=== PATIENT | male | born 1955 | race Hispanic/Latino ===

== ENCOUNTER 2023-08-10 07:11 | Observation (INO) | payer MEDICARE ==
[2023-08-05 14:44] LABS: BASOPHILS % 0.5 % (0.0-1.0); EOSINOPHILS # (AUTO) 0.1 (0.0-0.4); EOSINOPHILS % 1.4 % (0.0-6.0); HEMOGLOBIN 17.5 g/dL (14.0-18.0); LYMPHOCYTES # (AUTO) 1.7 (1.0-3.2); LYMPHOCYTES % 21.1 % (18.0-39.1); MEAN CORPUSCULAR HEMOGLOBIN 31.4 pg (28-32); MONOCYTES # (AUTO) 0.6 (0.2-0.8); MONOCYTES % 7.8 % (4.4-11.3); NEUTROPHILS # (AUTO) 5.4 (2.1-6.9); NEUTROPHILS % 69.1 % (38.7-80.0); PLATELET COUNT 199 x10e3/uL (140-360); RED BLOOD COUNT 5.58 x10e6/uL (4.3-5.7); WHITE BLOOD COUNT 7.87 x10e3/uL (4.8-10.8)
[2023-08-05 14:59] LABS: ANION GAP 16.5 mmol/L (8-16); CALCIUM 9.4 mg/dL (8.4-10.2); CREATININE, SERUM 1.1 mg/dL (0.72-1.25); POTASSIUM 4.5 mmol/L (3.5-5.1)
[2023-08-10] VITALS (8 sets, daily range): BP systolic 100–120; BP diastolic 79–80; PULSE 72–93; RESP 18–20; TEMP 97.5–98.4; O2SAT 89–95
[~2023-08-10] VITALS: Ht 175.3 cm; Wt 93.0 kg
[~2023-08-10 07:11] MED LIST: COREG12.5 MG PO; GLIMEPIRIDE2 MG PO; HYDROCODON-ACE1 EAC9 PO; HYDROXYCHLOROQ200 MG PO; LANSOPRAZOLE30 MG PO; LIPITOR10 MG PO; LOSARTAN POTASS25 MG PO; METFORMIN HCL500 M2 PO; TRAZODONE HCL300 MG PO
[2023-08-10] MEDS: LACTATED RINGER'S 1,000 ML BAG IV ONE (08:10)
[2023-08-10] MEDS ORDERED: KETAMINE 50MG/5ML SYR ONE (09:22)
[2023-08-10] MEDS: ONDANSETRON HCL INJ 2MG/ML 2ML 2 MG/ML VIAL ONE (11:02)
[2023-08-10] MEDS: METOCLOPRAMIDE HCL 10 MG/2ML VIAL ONE (11:10)
[2023-08-10] MEDS: CEFAZOLIN SODIUM 2 GM ONE (11:50)
[2023-08-10] MEDS: INSULIN REGULAR, HUMAN 100 UNIT/1 ML ONE (11:50)
[2023-08-10] MEDS: LACTATED RINGER'S 1,000 ML INJ SCH (12:00)
[2023-08-10] MEDS ORDERED: SODIUM CHLORIDE FLUSH 10 ML SYR INJ PRN (12:00)
[2023-08-10] MEDS ORDERED: PROPOFOL IV EMULSION 10 MG/ML 20 ML VIAL ONE (12:57)
[2023-08-10] MEDS ORDERED: LIDOCAINE HCL 2% LOCAL INJ 5 ML SDV VIAL INJ ONE (12:57)
[2023-08-10] MEDS ORDERED: SEVOFLURANE INHAL SOLN 250 ML PEN BTL ONE (12:57)
[2023-08-10] MEDS ORDERED: ACETAMINOPHEN 1000 MG/100 ML IV ONE (12:57)
[2023-08-10] MEDS ORDERED: ONDANSETRON HCL INJ 2MG/ML 2ML 2 MG/ML VIAL ONE (12:57)
[2023-08-10] MEDS ORDERED: PHENYLEPHRINE HCL 1% 10 MG/ML VIAL ONE (12:57)
[2023-08-10] MEDS ORDERED: DEXMEDETOMIDINE HCL 200 MCG/2 ML VIAL ONE (12:57)
[2023-08-10] MEDS ORDERED: ROCURONIUM BROMIDE 10 MG/ML 5ML VIAL IV ONE (12:57)
[2023-08-10] MEDS ORDERED: SUGAMMADEX SODIUM 200 MG/2 ML VIAL IV ONE (12:57)
[2023-08-10] MEDS ORDERED: DEXAMETHASONE SOD PHOS INJ 4 MG/ML SDV ONE (12:57)
[2023-08-10] MEDS ORDERED: EPHEDRINE SULFATE INJ 50 MG/ML VIAL ONE (12:57)
[2023-08-10] MEDS: HYDROCODONE/APAP 5MG-325MG TAB PO SCH (13:13)
[2023-08-10] MEDS ORDERED: ROPIVACAINE 0.5% 5 MG/ML 30 ML SDV ONE (13:43)
[2023-08-10] MEDS ORDERED: DEXAMETHASONE SOD PHOS 10 MG/1 ML VIAL ONE (13:43)
[2023-08-10] MEDS ORDERED: HYDRALAZINE HCL 20 MG/ML VIAL IV PRN (15:30)
[2023-08-10] MEDS ORDERED: DIPHENHYDRAMINE HCL 25 MG CAP PO PRN (15:30)
[2023-08-10] MEDS ORDERED: CHLORASEPTIC SPRAY 177 ML BTL MM PRN (15:30)
[2023-08-10] MEDS ORDERED: ACETAMINOPHEN 325 MG TAB PO PRN (15:30)
[2023-08-10] MEDS ORDERED: BENZONATATE 100 MG CAP PO PRN (15:30)
[2023-08-10] MEDS ORDERED: SIMETHICONE 80 MG CHEW PO PRN (15:30)
[2023-08-10] MEDS ORDERED: DOCUSATE SODIUM 100 MG CAP PO PRN (15:30)
[2023-08-10] MEDS ORDERED: ALBUTEROL/IPRATROPIUM 3 ML NEB NEB PRN (15:30)
[2023-08-10] MEDS ORDERED: DEXTROSE 50% SYRINGE 50 ML IV PRN ×2 (15:30)
[2023-08-10] MEDS ORDERED: POTASSIUM CHLORIDE 20 MEQ TAB CR PO PRN (15:30)
[2023-08-10] MEDS: HYDROXYCHLOROQUINE SULFATE 200 MG TAB PO SCH (17:17)
[2023-08-10] MEDS: METFORMIN HCL 500 MG TAB CR PO SCH (17:18)
[2023-08-10] MEDS: CEFAZOLIN SODIUM 2 GM in SODIUM CHLORIDE 0.9% 100 ML IV SCH (17:18)
[2023-08-10] MEDS: CARVEDILOL 12.5 MG TAB PO SCH (17:19)
[2023-08-10] MEDS ORDERED: FENTANYL CITRATE/PF 100MCG/2 ML INJ ONE (17:21)
[2023-08-10] MEDS ORDERED: MIDAZOLAM HCL 2 MG/2 ML VIAL ONE (17:21)
[2023-08-10] MEDS: INSULIN LISPRO 100 UNIT/1 ML 3ML VIAL SQ SCH (17:30)
[2023-08-10] MEDS: HYDROCODONE/APAP 10MG-325MG TAB PO PRN (18:21)
[2023-08-10] MEDS: ENOXAPARIN SOD INJ 40 MG/0.4 ML SYR SC SCH (20:55)
[2023-08-10] MEDS: TRAZODONE HCL 50 MG TAB PO SCH (20:59)
[2023-08-11] VITALS (7 sets, daily range): BP systolic 111–143; BP diastolic 83–114; PULSE 71–86; RESP 17–21; TEMP 97.6–98.1; O2SAT 93–96
[2023-08-11 05:55] LABS: BASOPHILS % 0.1 % (0.0-1.0); EOSINOPHILS % 0.1 % (0.0-6.0); HEMATOCRIT 42.5 % (38.2-49.6); HEMOGLOBIN 14.1 g/dL (14.0-18.0); MEAN CORPUSCULAR HGB CONC 33.2 g/dL (31-35); MEAN CORPUSCULAR VOLUME 96.4 fL (81-99); MONOCYTES # (AUTO) 0.9 (0.2-0.8); MONOCYTES % 8.6 % (4.4-11.3); NEUTROPHILS # (AUTO) 8.3 (2.1-6.9); NEUTROPHILS % 80.8 % (38.7-80.0); PLATELET COUNT 172 x10e3/uL (140-360); RED BLOOD COUNT 4.41 x10e6/uL (4.3-5.7); RED CELL DISTRIBUTION WIDTH 12.8 % (11.7-14.4); WHITE BLOOD COUNT 10.31 x10e3/uL (4.8-10.8)
[2023-08-11 06:22] LABS: CALCIUM 8.5 mg/dL (8.4-10.2); CREATININE, SERUM 0.83 mg/dL (0.72-1.25)
[2023-08-11] MEDS ORDERED: PANTOPRAZOLE SOD 40 MG TABEC PO SCH (07:30)
[2023-08-11] MEDS ORDERED: NON-FORMULARY MEDICATION (Lansoprazole 30 MG) PO SCH (09:00)
[2023-08-11] MEDS: PANTOPRAZOLE SOD 40 MG TABEC PO SCH (09:03)
[2023-08-11] MEDS: GLIMEPIRIDE 2 MG TAB PO SCH (09:04)
[2023-08-11] MEDS: LOSARTAN POTASSIUM 25 MG TAB PO SCH (09:14)
[2023-08-11] MEDS: ATORVASTATIN 40 MG TAB PO SCH (09:16)
[2023-08-11] MEDS: HYDROCODONE/APAP 10MG-325MG TAB PO PRN (09:22)
[2023-08-11] MEDS: LIDOCAINE 4% PATCH TP PRN (11:51)
[2023-08-11] MEDS: ONDANSETRON HCL INJ 2MG/ML 2ML 2 MG/ML VIAL IV PRN (13:19)
== END 2023-08-11 14:56 | disposition home or self-care (01) ==
LOC: OR 07:11 → PACU V 11:18 → MED/SURG3 11:59
PROVIDERS: ADMIT Orthopaedic Surgery; ATTEND Orthopaedic Surgery
DX: M19.012 Primary osteoarthritis, left shoulder (principal); M75.102 Unspecified rotator cuff tear or rupture of left shoulder, not specified as traumatic; M25.712 Osteophyte, left shoulder; M06.9 Rheumatoid arthritis, unspecified; E11.9 Type 2 diabetes mellitus without complications; I10 Essential (primary) hypertension; E78.5 Hyperlipidemia, unspecified; K21.9 Gastro-esophageal reflux disease without esophagitis; F41.9 Anxiety disorder, unspecified; Z01.812 Encounter for preprocedural laboratory examination; Z01.818 Encounter for other preprocedural examination; Z79.84 Long term (current) use of oral hypoglycemic drugs; Z79.899 Other long term (current) drug therapy; Z68.30 Body mass index [BMI] 30.0-30.9, adult; Z87.891 Personal history of nicotine dependence
CPT/HCPCS: 23470; 36415 ×3; 71046; 80048 ×2; 82948 ×2; 85025 ×2; 94799 ×2; 97161; C1713 ×2; C1776; G0378 ×2; J0131; J1100 ×2; J1650; J2001; J2250; J2371; J2405 ×2; J2704; J2765; J2795; J3010; J7050; J7121; S0164